=== PATIENT | male | born 1955 | race Two or more races ===

== ENCOUNTER 2022-11-23 14:38 | Emergency (ER) | payer MEDICARE, OTHER ==
[~2022-11-23] VITALS: Ht 160 cm; Wt 78.2 kg
[2022-11-23 15:39] LABS: Basophils # (auto) 0.1 10 ^3/uL (0-0.2); Basophils % (auto) 0.8 % (0.0-2.0); Eosinophils # (auto) 0.2 10 ^3/uL (0-0.8); Eosinophils % (auto) 1.5 % (0.0-7.0); Hematocrit 38.1 % (41.0-53.0); Hemoglobin 13.1 g/dL (13.5-17.5); Lymphocytes # (auto) 1.7 10 ^3/uL (0.4-5.4); Lymphocytes % (auto) 13.8 % (10.0-50.0); Mean Corpuscular Hemoglobin 29.3 pg (28.0-32.0); Mean Corpuscular Hgb Conc. 34.3 g/dL (32.0-36.0); Mean Corpuscular Volume 85.4 fL (80.0-100.0); Monocytes # (auto) 0.9 10 ^3/uL (0-1.3); Monocytes % (auto) 6.9 % (0.0-12.0); Neutrophils # (auto) 9.7 10 ^3/uL (1.6-8.6); Nucleated Red Blood Cells % 0.1 %; Red Blood Cells 4.46 10^6/uL (4.5-5.90); Red Cell Distribution Width 14.1 % (11.8-14.3); White Blood Cell 12.6 10^3/uL (4.4-10.8)
[2022-11-23 15:53] LABS: Calcium 9.7 mg/dL (8.5-10.1)
[2022-11-23 15:58] LABS: Bilirubin, Total 0.7 mg/dL (0.2-1.0); Total Protein 8.4 g/dL (6.4-8.2)
[2022-11-23 18:56] LABS: Urine Bacteria NONE SEEN /hpf (None Seen); Urine Blood 3+ /uL (Negative); Urine Specific Gravity 1.018 (1.001-1.035); Urine WBC 2 /hpf (0 - 3)
[2022-11-23] MEDS ORDERED: NAP500T PO (21:35)
[2022-11-23] MEDS ORDERED: TAM04C PO (21:35)
[2022-11-23 23:55] VITALS: BP 137/68
== END 2022-11-24 00:06 | disposition home or self-care (01) ==
LOC: ER 14:38
DX: N20.0 Calculus of kidney (principal)
CPT/HCPCS: 36415; 74176; 80053; 81001; 85025

== ENCOUNTER 2025-03-03 19:35 | Emergency (ER) | payer MEDICARE, MEDICAID ==
[~2025-03-03] VITALS: Ht 165.1 cm; Wt 79.5 kg
[~2025-03-03 19:35] MED LIST: NAP500T PO; TAMS-35 PO
--- NOTE | 2025-03-03 21:24 | DVH ---
EXAM: CT HEAD WITHOUT CONTRAST INDICATION: Fall/right-sided trauma TECHNIQUE: CT of the head without intravenous contrast. Radiation Dose Information: CT Dose: CTDI volume is 67.21 mGy. Dose-length product is 1324.26 mGy*cm The dose indicators for CT are the volume Computed Tomography (CT) Dose Index (CTDIvol) and the Dose Length Product (DLP), and are measured in units of mGy and mGy-cm, respectively. These indicators are not patient dose, but values generated from the CT scanner acquisition factors. The report includes radiation exposure data for exposures received during this examination. COMPARISON: None FINDINGS: There is no evidence of acute intracranial hemorrhage, extra-axial collection, mass effect, midline s hift, herniation or hydrocephalus. Acute subdural hematoma on the right measuring 13 cm front to back and measures 8-9 mm in thickness. There is a 3 mm midline shift to the left. The ventricles, sulci and cisterns are age appropriate. The castro-white differentiation is intact. Patchy periventricular and subcortical white matter hypoattenuation is nonspecific but may be related to small vessel ischemic disease. The visualized paranasal sinuses and mastoid air cells are clear. The surrounding soft tissues and osseous structures are unremarkable. IMPRESSION: 1. Subacute subdural hematoma on the right. Measuring 13 cm in length and 8-9 mm in thickness. 2. There is a 3.1 mm midline shift to the left. CRITICAL FINDINGS: Critical Result: SUBACUTE RIGHT SUBDURAL HEMATOMA Findings discussed with Campos , at 03/03/2025 09:17 PM, and acknowledged receipt and understanding of the findings. ..
[2025-03-03] MEDS: TETANUS-DIPTH-ACEL PERTUSSIS 0.5ML SYR Tdap IM ONE (21:29)
[2025-03-03] MEDS: ACETAMINOPHEN 325 MG TAB PO ONE (21:29)
--- NOTE | 2025-03-03 21:58 | ED.PDOC ---
HPI (NEURO) HPI Comments This patient is a pleasant 69-year-old male who arrives to the ED today for evaluation of right-sided head wound and right arm were status post ground level fall two days ago. Patient states he was moving boxes in his caodaism when he fell, striking the right side of his head and I on concrete. Patient denies any LOC at the time, but states he has had some swelling on the lateral aspect of his eye and head in his advised him to come to ED for evaluation. Patient denies any fever nausea or vomiting. Patient states some mild lateral blurred vision in the right eye. Vital signs were stable. Chief Complaint: Fall Injury Time Seen by MD: 19:55 Primary Care Provider: UNKNOWN Reviewed Notes: Nurses Notes Information Source: Patient Mode of Arrival: Ambulatory Severity: Moderate Dizziness/Weakness Severity: Does not affect activitie Headache Severity: Moderate Timing: Days Duration: Since onset Prehospital treatment: None Headache Location: Parietal, Temporal Onset: With light exertion Circumstances: Trauma Symptoms: Other (Right-sided head pain with right eye lateral mild blurred vision) Before: Normal After: Normal Mentation History of: None Modifying factors: Nothing Associated Signs and Symptoms: Headache, Blurred Vision Past Medical History PAST MEDICAL HISTORY: Denies Surgical History: Denies all surgeries Family History Family History: Reviewed,noncontributory to illness, No family hx of Cancer, No family hx of DM, No family hx of Heart areli, No family hx of HTN, No family hx ofKidney areli, No family hx of Liver areli, No family hx of Lung areli, No family hx of Stroke Social History Smoker: Non-Smoker Alcohol: Denies ETOH Use Drugs: Denies Drug Use Lives In: Home Constitutional: denies: chills, diaphoresis, fatigue, fever, malaise, sweats, weakness, others EENTM: reports: blurred vision; denies: double vision, ear bleeding, ear discharge, ear drainage, ear pain, ear ringing, eye pain, eye redness, hearing loss, mouth pain, mouth swelling, nasal discharge, nose bleeding, nose congestion, nose pain, photophobia, tearing, throat pain, throat swelling, voice changes, others Respiratory: denies: cough, hemoptysis, orthopnea, SOB at rest, shortness of breath, SOB with excertion, stridor, wheezing, others Cardiovascular: denies: chest pain, dizzy spells, diaphoresis, Dyspnea on exertion, edema, irregular heart beat, left arm pain, lightheadedness, palpitations, PND, syncope, others Gastrointestinal: denies: abdomen distended, abdominal pain, blood streaked bowels, constipated, diarrhea, dysphagia, difficulty swallowing, hematemesis, melena, nausea, poor appetite, poor fluid intake, rectal bleeding, rectal pain, vomiting, others Genitourinary: denies: burning, dysuria, flank pain, frequency, hematuria, incontinence, penile discharge, penile sore, pain, testicle pain, testicle swelling, urgency, others Neurological: reports: headache; denies: dizziness, fainting, left sided numbness, left sided weakness, numbness, paresthesia, pre-existing deficit, right sided numbness, right sided weakness, seizure, speech problems, tingling, tremors, weakness, others Musculoskeletal: denies: back pain, gout, joint pain, joint swelling, muscle pain, muscle stiffness, neck pain, others Integumetry: denies: bruises, change in color, change in hair/nails, dryness, laceration, lesions, lumps, rash, wounds, others Allergic/Immunocompromised: denies: Difficulty Healing, Frequent Infections, Hives, Itching, others Hematologic/Lymphatic: denies: anemia, blood clots, easy bleeding, easy bruising, swollen glands, others Endocrine: denies: excessive hunger, excessive sweating, excessive thirst, excessive urination, flushing, intolerance to cold, intolerance to heat, unexplained weight gain, unexplained weight loss, others Psychiatric: denies: anxiety, bipolar disorder, depression, hopeless, panic disorder, schizophrenia, sleepless, suicidal, others Physical Exam General Appearance: Mild Distress (Patient was in mild discomfort at time of evaluation.), Normal HEENT: Head (Patient displays an abrasion to the right sided scalp at the lower parietal lobe as well as some swelling at the right lateral commissure of the eye. No subconjunctival hemorrhage noted. Very mild lateral blurred vision.), Pharynx Normal, TMs Normal Neck: Full Range of Motion, Non-Tender, Normal, Normal Inspection Respiratory: Chest Non-Tender, Lungs Clear, No Accessory Muscle Use, No Respiratory Distress, Normal Breath Sounds Cardiovascular: No Edema, No JVD, No Murmur, No Gallop, Normal Peripheral Pulses, Regular Rate/Rhythm Breast Exam: Deferred Gastrointestinal: No Organomegaly, Non Tender, No Pulsatile Mass, Normal Bowel Sounds, Soft Genitalia: Deferred Pelvic: Deferred Rectal: Deferred Extremities: Other (Diffuse abrasion noted to right dorsal forearm. No active bleed. No edema or ecchymosis.) Neurologic: Alert, No Motor Deficits, Normal Affect, Normal Mood, No Sensory Deficits Cerebellar Function: Normal Reflexes: Normal Skin: Dry, Normal Color, Warm Lymphatic: No Adenopathy Was a procedure done? Was a procedure done?: No Differential Diagnosis (SZ) Headache: Other (Subdural hematoma, subarachnoid hemorrhage, skull fracture, head trauma, abrasion, I contusion) X-Ray, Labs, Meds, VS Vital Signs Date Time Temp Pulse Resp B/P (MAP) Pulse Ox O2 Delivery O2 Flow Rate FiO2 03/03/25 21:35 85 21 98 Room Air 03/03/25 21:35 99.0 85 21 157/79 (105) 98 99.0 03/03/25 20:05 98.8 90 16 141/78 (99) 98 98.8 X-Ray, Labs, Meds, VS Comment Radiology contacted me to notify me of the patient's subacute subdural hematoma on the right side. 13 cm in length and 8-9 mm in thickness. There is a 3.1 mm midline shift to the left. Patient will be transferred to higher level of care for continued evaluation and management. Patient is stable at this time. Spoke with Dr. Claudio at [facility]. Advised him of imaging findings. He agreed to accept the patient as an admission for neuro evaluation. Time of 1ST Reevaluation: 21:57 Reevaluation 1ST: Unchanged Consultation: PCP, Neurology Patient Education/Counseling: Diagnosis, Treatment Family Education/Counseling: Diagnosis, Treatment Departure 1 Departure Time of Disposition: 21:57 Impression: Primary Impression: Subdural hematoma caused by concussion Additional Impression: Midline shift of brain due to hematoma Disposition: 02 SHORT TERM HOSPITAL Condition: Stable Discharged With: Self Critical Care Note Critical Care Time?: No Stability Stability form required: No Heart Score Heart Score: Heart Score Response (Comments) Value History N/A 0 EKG N/A 0 Age N/A 0 Risk Factors N/A 0 Troponin N/A 0 Total 0 DEE HE PAC March 03, 2025 21:58
[2025-03-04 00:11] VITALS: BP 151/84; PULSE 77; RESP 23; TEMP 97.8; O2SAT 98
== END 2025-03-04 02:15 | disposition short-term general hospital (02) ==
LOC: ER 19:35
DX: S06.5XAA Traumatic subdural hemorrhage with loss of consciousness status unknown, initial encounter (principal); W22.8XXA Striking against or struck by other objects, initial encounter; Y93.89 Activity, other specified; Y92.89 Other specified places as the place of occurrence of the external cause; Y99.8 Other external cause status
CPT/HCPCS: 70450; 90715